=== PATIENT | female | born 2000 ===

== ENCOUNTER 2019-07-04 11:05 | Inpatient (IN) | payer OTHER ==
[2019-07-04] MEDS ORDERED: OXYTOCIN DRIP 30 UNITS/500 ML BAG IV SCH (12:00)
[2019-07-04] MEDS ORDERED: AMPICILLIN/NS 2 GM/100 ML 2 GM/100 ML BAG IV ONE (12:07)
[2019-07-04] MEDS ORDERED: TERBUTALINE 1 MG/1 ML INJ SUB-Q PRN (12:07)
[2019-07-04] MEDS ORDERED: LIDOCAINE (2%) 20 MG/1 ML VIAL 20 ML MDV INFILTRATI ONE (12:07)
[2019-07-04] MEDS ORDERED: BUTORPHANOL 2 MG/1 ML INJ IV PRN (12:07)
[2019-07-04] MEDS ORDERED: NALOXONE 0.4 MG/1 ML INJ IV PRN (12:07)
[2019-07-04] MEDS ORDERED: TERBUTALINE 1 MG/1 ML INJ IVP PRN (12:07)
[2019-07-04] MEDS ORDERED: fentaNYL 100 MCG/2 ML INJ IV PRN (12:07)
[2019-07-04] MEDS ORDERED: ePHEDrine SULFATE 50 MG/1 ML INJ IV PRN (12:07)
[2019-07-04] MEDS ORDERED: ONDANSETRON 4 MG/2 ML INJ IV PRN (12:07)
[2019-07-04] MEDS ORDERED: OXYTOCIN 20 UNIT/1000ML DRIP 20 UNITS/1,000 ML BAG IV SCH (13:00)
[2019-07-04] MEDS: LACTATED RINGERS 1,000 ML IV SCH ×2 (13:11→23:53)
[2019-07-04 13:18] LABS: Hemoglobin 10.7 gm/dl (10.1-14.3); Mean Corpuscular HGB Conc 33 % (30-34); Mean Corpuscular Volume 83 fl (79-97); Platelet Count 263 K/mm3 (140-440); Red Blood Count 3.98 M/mm3 (3.65-5.03); Red Cell Distribution Width 16.2 % (13.2-15.2)
--- NOTE | 2019-07-04 13:56 | History and Physical Report ---
History of Present Illness Date of examination: 07/04/19 Date of admission: 07/04/19 11:57 Chief complaint: my water broke History of present illness: Pt is a 18 year old female primigravida MARIE 07/25/19 at 37w0d who presents c/o water leaking since midnight this morning, thought she did not present until 1130 am. She denies contraction or vaginal bleeding. She has had care at [facility] since 14 wks complicated by glucose intolerance. Her GBS status is unknown. Past History Past Medical History: other (heart murmur) Past Surgical History: no surgical history Family/Genetic History: diabetes Social history: no significant social history - Obstetrical History Expected Date of Delivery: 07/25/19 Actual Gestation: 37 Week(s) 0 Day(s) : 1 Medications and Allergies Allergies Allergy/AdvReac Type Severity Reaction Status Date / Time No Known Allergies Allergy Unverified 07/04/19 12:28 Active Meds: Active Medications Butorphanol Tartrate (Stadol) 2 mg IV Q2H PRN PRN Reason: Pain , Severe (7-10) Ephedrine Sulfate (Ephedrine Sulfate) 10 mg IV Q2M PRN PRN Reason: Hypotension Fentanyl (Sublimaze) 100 mcg IV Q2H PRN PRN Reason: Pain,Severe (7-10) LABOR PAIN Oxytocin/Sodium Chloride (Pitocin/Ns 20 Unit/1000ml Drip) 20 units in 1,000 mls @ 125 mls/hr IV DIRECT RYAN Oxytocin/Sodium Chloride (Pitocin/Ns 30 Unit/500ml) 30 units in 500 mls @ 4 mls/hr IV TITR RYAN; Protocol Lactated Ringer's (Lactated Ringers) 1,000 mls @ 125 mls/hr IV DIRECT RYAN Last Admin: 07/04/19 13:11 Dose: 125 mls/hr Documented by: Ampicillin Sodium (Ampicillin/Ns 1 Gm/50 Ml) 1 gm in 50 mls @ 100 mls/hr IV Q4HR RYAN; Protocol Mineral Oil (Mineral Oil) 30 ml PO QHS PRN PRN Reason: Constipation Naloxone HCl (Naloxone) 0.1 mg IV Q2MIN PRN PRN Reason: Res Rate </= 8 or 02 SAT < 92% Ondansetron HCl (Zofran) 4 mg IV Q8H PRN PRN Reason: Nausea And Vomiting Terbutaline Sulfate (Brethine) 0.25 mg SUB-Q ONCE PRN PRN Reason: Hyperstimulation/Hypertonicity Terbutaline Sulfate (Brethine) 0.25 mg IVP ONCE PRN PRN Reason: Hyperstimulation/Hypertonicity Review of Systems All systems: negative - Vital Signs Vital signs: Vital Signs Pulse BP 118 H 142/77 07/04/19 11:32 07/04/19 11:32 Temp Pulse Resp BP Pulse Ox 97.8 F 102 H 19 124/71 97 07/04/19 11:33 07/04/19 13:52 07/04/19 11:33 07/04/19 13:22 07/04/19 13:52 - Physical Exam Breasts: Positive: deferred Abdomen: Positive: soft (obese, gravid ) Uterus: Positive: enlarged (gravid ) - Obstetrical FHR: auscultation normal Uterine Contraction Monitor Mode: External Cervical Dilatation: 1 (per RN ) Uterine Contraction Pattern: Irregular Uterine Tone Measurement Phase: Resting Uterine Contraction Intensity: Mild Results Result Diagrams: 07/04/19 13:00 Abnormal lab results 07/04/19 Range/Units 13:00 WBC 11.2 H (4.5-11.0) K/mm3 MCH 27 L (28-32) pg RDW 16.2 H (13.2-15.2) % All other labs normal. Assessment and Plan A: IUP at 37w0d SROM Glucose Intolerance GBS unknown P: Admit to labor and delivery Ampicillin for GBS prophylaxis Pitocin induction of labor Routine intrapartum care.
[2019-07-04] MEDS: AMPICILLIN/NS 1 GM/50 ML 1 GM/50 ML BAG IV SCH ×2 (17:07→20:52)
[2019-07-04] MEDS ORDERED: MINERAL OIL 30 ML ORAL LIQD PO PRN (22:00)
--- NOTE | 2019-07-04 23:51 | Event Note ---
Date: 07/04/19 Pt uncomfortable with contractions. Category II tracing. Cervix: 5100/-2. IUPC placed. Routine intrapartum care.
[2019-07-05] MEDS ORDERED: DEXMEDETOMIDINE 200 MCG/2 ML VIAL IV ONE (00:01)
[2019-07-05] MEDS ORDERED: fentaNYL-BUPIV 2 MCG/ML-0.125% 200 MCG/100 ML BAG EPIDURAL ONE (00:01)
[2019-07-05] MEDS ORDERED: NALOXONE 2 MG/2 ML INJ IV PRN (00:03)
[2019-07-05] MEDS ORDERED: ePHEDrine SULFATE 50 MG/1 ML INJ IV PRN (00:03)
--- NOTE | 2019-07-05 00:04 | Anesthesia Consultation ---
Anesthesia Consult and Med Hx Date of service: 07/05/19 - Airway Anesthetic Teeth Evaluation: Good ROM Head & Neck: Adequate Mental/Hyoid Distance: Adequate Mallampati Class: Class II Intubation Access Assessment: Probably Good - Pulmonary Exam CTA: Yes - Cardiac Exam Cardiac Exam: RRR - Pre-Operative Health Status ASA Pre-Surgery Classification: ASA2 Proposed Anesthetic Plan: Epidural - Pulmonary Hx Asthma: No Hx Pneumonia: No - Cardiovascular System Hx Hypertension: No - Central Nervous System Hx Seizures: No Hx Psychiatric Problems: No - Endocrine Hx Renal Disease: No Hx Hypothyroidism: No Hx Hyperthyroidism: No - Hematic Hx Sickle Cell Disease: No - Other Systems Hx Alcohol Use: No Hx Obesity: Yes
[2019-07-05] MEDS: LACTATED RINGERS 1,000 ML IV SCH (00:49)
[2019-07-05] MEDS: AMPICILLIN/NS 1 GM/50 ML 1 GM/50 ML BAG IV SCH (00:49)
[2019-07-05] MEDS ORDERED: fentaNYL-BUPIV 2 MCG/ML-0.125% 200 MCG/100 ML BAG EPIDURAL SCH (01:00)
[2019-07-05] MEDS ORDERED: METHYLERGONOVINE MALEATE 0.2 MG/ML VIAL IM ONE ×2 (03:56→03:57)
[2019-07-05] MEDS ORDERED: METHYLERGONOVINE 0.2 MG TABLET ONE (03:56)
--- NOTE | 2019-07-05 04:33 | Procedure Note ---
OB Delivery Note - Delivery Date of Delivery: 07/05/19 Surgeon: SOO CODY Estimated blood loss: 500cc - Vaginal Delivery presentation: vertex Delivery position: OA Intrapartum events: PROM->1hr before delivery, meconium, decreased FHT variability, uterine atony Delivery induction: oxytocin Delivery augmentation: pitocin Delivery monitor: external FHT, internal uterine Route of delivery: Delivery placenta: spontaneous Episiotomy: none Delivery laceration: 2nd degree Delivery repair: vicryl Anesthesia: local, epidural Delivery comments: Pt progressed to complete/complete/+1 and pushed to deliver a viable male over intact perineum via spontaneous vaginal delivery under epidural anesthesia. Head delivered direct OA, then restituted to ASHLEY, followed by shoulders and body. was bulb suctioned at delivery. Cord was clamped and cut and handed to NICU staff in attendance. Placenta delivered spontan eously. Uterus noted to be atonic despite pitocin infusion. Methergine 0.2 mg IM administered with improvement in uterine tone. Vagina and perineum explored. Second degree perineal laceration repaired in a standard fashion. EBL 500 mL. - A at 1 minute: 8 at 5 minutes: 9 Infant Gender: Male (2908g (6lb 6.5 oz) @ 0352 am)
[2019-07-05] MEDS ORDERED: MAGNESIUM HYDROXIDE (MOM) ORAL LIQD UDC PO PRN (06:42)
[2019-07-05] MEDS ORDERED: PROMETHAZINE 25 MG TAB PO PRN (06:42)
[2019-07-05] MEDS ORDERED: LANOLIN/ZINC/DIMETHICONE (LANSINOH) 7 GM TP PRN ×2 (06:42)
[2019-07-05] MEDS ORDERED: ONDANSETRON 4 MG/2 ML INJ IV PRN (06:42)
[2019-07-05] MEDS ORDERED: WITCH HAZEL/ GLYCERIN PAD TP PRN (06:42)
[2019-07-05] MEDS ORDERED: diphenhydrAMINE 25 MG CAP PO PRN (06:42)
[2019-07-05] MEDS ORDERED: BENZOCAINE/MENTHOL 20/0.5% TOP SPRAY 56 GM TP PRN (06:42)
[2019-07-05] MEDS ORDERED: PROMETHAZINE 25 MG RECT SUPP PR PRN (06:42)
[2019-07-05] MEDS ORDERED: ACETAMINOPHEN 325 MG TAB PO PRN (06:42)
[2019-07-05] MEDS ORDERED: HYDROcodone/ACETAMINOPHEN 5-325 MG TAB PO PRN (06:42)
[2019-07-05] MEDS: FERROUS SULFATE 325 MG TAB PO SCH ×4 (09:30→21:28)
[2019-07-05] MEDS: IBUPROFEN 600 MG TAB PO SCH ×3 (12:42→23:00)
[2019-07-05 16:47] LABS: Hematocrit 28.9 % (30.3-42.9); Hemoglobin 9.2 gm/dl (10.1-14.3)
[2019-07-05] MEDS ORDERED: LACTATED RINGERS 1,000 ML IV SCH (18:00)
--- NOTE | 2019-07-05 21:37 | Post Anesthesia Evaluation ---
- Post Anesthesia Evaluation Patient Participated: Yes Airway Patent: Yes Stable Respiratory Function: Yes Nausea/Vomiting: No Temp > 96.8F: Yes Pain Manageable: Yes Adequeate Hydration: Yes Anesthesia Complications: No Block Receding Appropriately: Yes Patient on Ventilator: No
[2019-07-06] MEDS ORDERED: MEASLES, MUMPS & RUBELLA 12,500 UNIT/0.5 ML VACCINE SUB-Q ONE (04:33)
[2019-07-06] MEDS: IBUPROFEN 600 MG TAB PO SCH ×4 (05:22→23:57)
[2019-07-06] MEDS ORDERED: DIPHtheria,PERTUSSIS(ACELL),TETANUS VACCINE/PF 0.5 ML VIAL IM ONE (06:00)
--- NOTE | 2019-07-06 07:43 | Progress Note ---
Assessment and Plan A/P PPD1 routine PP care discharge home tomorrow Subjective - Subjective Date of service: 07/06/19 Principal diagnosis: s/p Patient reports: appetite normal, voiding normally, pain well controlled, flatus, ambulating normally [place]: doing well Objective - Vital Signs Latest vital signs: Vital Signs Temp Pulse Resp BP BP Pulse Ox 07/06/19 04:00 98.6 F 78 18 117/79 07/06/19 01:04 98.0 F 96 H 18 104/60 99 07/05/19 20:30 98.0 F 112 H 18 123/68 99 07/05/19 17:04 99.1 F 110 H 18 117/67 99 07/05/19 12:45 99.4 F 105 H 18 120/77 99 07/05/19 09:14 97.8 F 102 H 18 116/75 98 Intake and Output 07/05/19 07/05/19 07/06/19 15:59 23:59 07:59 Intake Total 360 540 Output Total 1450 Balance -1090 540 Intake: Oral 360 240 Intake, Free Water 300 Output: Urine 1450 Void 1450 Other: Total, Intake Amount 240 240 Total, Output Amount 800 # Voids Void 1 1 1 - Exam Breasts: Present: normal Cardiovascular: Present: Regular rate, Normal S1 Lungs: Present: Clear to auscultation, Normal air movement Abdomen: Present: normal appearance, soft, normal bowel sounds. Absent: distention, tenderness, guarding Uterus: Present: normal, firm, fundal height below umbilicus. Absent: bogginess, tenderness Extremities: Present: normal Deep Tendon Reflex Grade: Normal +2 Incision: Present: normal - Labs Labs: Abnormal lab results 07/05/19 Range/Units 16:20 Hgb 9.2 L (10.1-14.3) gm/dl Hct 28.9 L (30.3-42.9) %
[2019-07-06] MEDS ORDERED: FLU VACC QUAD 2019-20 (3 YR UP)/PF 60 MCG/0.5 ML SYRINGE IM ONE (12:00)
[2019-07-06] MEDS: FERROUS SULFATE 325 MG TAB PO SCH (21:49)
[2019-07-07] MEDS: IBUPROFEN 600 MG TAB PO SCH ×3 (06:42→18:49)
--- NOTE | 2019-07-07 08:30 | Progress Note ---
Assessment and Plan A: PPD2 s/p Tachycardia with normal TSH BP and temp stable Acute on chronic anemia due to and blood loss P: EKG Ferrous sulfate supplementation Close clinical monitoring Subjective - Subjective Date of service: 07/07/19 Principal diagnosis: s/p Interval history: Pt is PPD2 s/p . She was noted to have tachycardia, mildly decreased with IV fludis. TSH was normal. She denies chest pain, shortness of breath, dyspnea, dizziness. Patient reports: appetite normal, voiding normally, pain well controlled, ambulating normally [place]: doing well Objective - Vital Signs Latest vital signs: Vital Signs Temp Pulse Resp BP Pulse Ox 07/07/19 06:42 18 07/07/19 00:57 18 07/07/19 00:01 98.0 F 103 H 20 130/71 99 07/06/19 23:57 18 07/06/19 19:52 18 07/06/19 16:00 98.1 F 110 H 20 141/78 99 Intake and Output 07/06/19 07/07/19 07/07/19 23:59 07:59 15:59 Intake Total 120 240 Balance 120 240 Intake: Oral 120 240 Other: Total, Intake Amount 120 240 # Voids Void 1 1 - Exam Lungs: Present: Normal air movement Abdomen: Present: soft. Absent: distention Uterus: Present: firm, fundal height below umbilicus. Absent: bogginess Extremities: Present: normal
[2019-07-07] MEDS: FERROUS SULFATE 325 MG TAB PO SCH (10:03)
[2019-07-08] MEDS: IBUPROFEN 600 MG TAB PO SCH ×2 (00:31→06:23)
[2019-07-08] MEDS: FERROUS SULFATE 325 MG TAB PO SCH (00:31)
--- NOTE | 2019-07-08 07:46 | Progress Note ---
Assessment and Plan A: PPD3 s/p Vital signs stable Acute on chronic anemia due to and blood loss P: Ferrous sulfate supplementation D/c to home today Subjective - Subjective Date of service: 07/08/19 Principal diagnosis: s/p Interval history: Pt is PPD3 s/p . Tachycardia resolved with IV fluids. Patient reports: appetite normal, voiding normally, pain well controlled, flatus, ambulating normally [place]: doing well Objective - Vital Signs Latest vital signs: Vital Signs Temp Pulse Resp BP BP Pulse Ox 07/08/19 00:54 98.6 F 100 H 18 137/69 98 07/07/19 16:30 98.1 F 100 H 20 126/76 07/07/19 11:58 20 07/07/19 07:55 98.7 F 94 H 20 115/71 Intake and Output 07/07/19 07/07/19 07/08/19 15:59 23:59 07:59 Intake Total 360 550 960 Balance 360 550 960 Intake: Oral 360 550 Intake, Free Water 960 Other: Total, Intake Amount 240 240 # Voids Void 1 1 2 - Exam Lungs: Present: Normal air movement Abdomen: Present: soft. Absent: distention Uterus: Present: firm, fundal height below umbilicus. Absent: bogginess Extremities: Present: normal
--- NOTE | 2019-07-08 07:49 | Discharge Summary ---
Providers - Providers Date of Admission: 07/04/19 11:57 Date of discharge: 07/08/19 Attending physician: SOO CODY Primary care physician: GRINDER Hospitalization Reason for admission: rupture of membranes, IUP at term Delivery: Episiotomy: none Laceration: 2nd degree Other procedures: none complications: uterine atony (resolved with Methergine 0.2mg) Discharge diagnosis: IUP at term delivered Hospital course: Pt had a . She was noted to have sinus tachycardia , with a normal EKG and normal TSH, resolved with IV fluids. She met discharge criteria on PPD3. Condition at discharge: Good Disposition: DC-01 TO HOME OR SELFCARE Plan - Discharge Medications Prescriptions: Ferrous Sulfate [Feosol 325 MG tab] 325 mg PO BID #30 tablet Ibuprofen [Motrin] 600 mg PO Q8H PRN #30 tablet PRN Reason: Pain - Provider Discharge Summary Activity: routine, no sex for 6 weeks, no heavy lifting 4 weeks, no strenuous exercise Diet: routine Instructions: routine Additional instructions: [] Smoking cessation referral if applicable(refer to patient education folder for contact #) [] Refer to [facility]'s [facility] Booklet Call your doctor immediately for: * Fever > 100.5 * Heavy vaginal bleeding ( >1 pad per hour) * Severe persistent headache * Shortness of breath * Reddened, hot, painful area to leg or breast * Drainage or odor from incision. * Keep incision clean and dry at all times and follow doctor's instructions regarding bathing/showering - Follow up plan Follow up: SOO CODY MD [Staff Physician] - 14 Days (Please call [facility] to schedule appointment.) Forms: [facility] Discharge Summary
[2019-07-08 08:09] VITALS: BP 112/72
== END 2019-07-08 09:30 | disposition home or self-care (01) | DRG 774 ==
LOC: TRG 11:05 → APU 11:14 → TRG 11:56 → LD 11:57 → OB 07-05 06:37
PROVIDERS: ADMIT Obstetrics & Gynecology; ATTEND Obstetrics & Gynecology
PROC: 10E0XZZ Delivery of Products of Conception, External Approach (ICD-10-PCS; principal; 2019-07-05)
PROC: 0KQM0ZZ Repair Perineum Muscle, Open Approach (ICD-10-PCS; 2019-07-05)
PROC: 3E0R3BZ Introduction of Anesthetic Agent into Spinal Canal, Percutaneous Approach (ICD-10-PCS; 2019-07-05)
PROC: 00HU33Z Insertion of Infusion Device into Spinal Canal, Percutaneous Approach (ICD-10-PCS; 2019-07-05)
PROC: 10H07YZ Insertion of Other Device into Products of Conception, Via Natural or Artificial Opening (ICD-10-PCS; 2019-07-05)
PROC: 3E033VJ Introduction of Other Hormone into Peripheral Vein, Percutaneous Approach (ICD-10-PCS; 2019-07-05)
PROC: 3E0234Z Introduction of Serum, Toxoid and Vaccine into Muscle, Percutaneous Approach (ICD-10-PCS; 2019-07-06)
PROC: 3E0134Z Introduction of Serum, Toxoid and Vaccine into Subcutaneous Tissue, Percutaneous Approach (ICD-10-PCS; 2019-07-06)
DX: O42.02 Full-term premature rupture of membranes, onset of labor within 24 hours of rupture (principal); O72.1 Other immediate postpartum hemorrhage; D62 Acute posthemorrhagic anemia; O99.214 Obesity complicating childbirth; E66.9 Obesity, unspecified; Z3A.37 37 weeks gestation of pregnancy; Z37.0 Single live birth; Z23 Encounter for immunization; O70.1 Second degree perineal laceration during delivery; O90.81 Anemia of the puerperium
CPT/HCPCS: 36415; 84443; 85014; 85018; 85027; 86850; 86900; 86901; 88307; 90686; 93005; G0378; J0290; J0595; J2210; J2590; J3490; J7120